=== PATIENT | male | born 1945 ===

== ENCOUNTER → 2022-02-05 | Outpatient (CLI) | payer OTHER | END | disposition home or self-care (01) | LOC: EDSEX → SHCH 14:42 → EDUNIT# 15:00 | PROVIDERS: ATTEND Internal Medicine | DX: I87.2 Venous insufficiency (chronic) (peripheral) (principal); I73.9 Peripheral vascular disease, unspecified; R60.9 Edema, unspecified | CPT/HCPCS: 93925; 93970 ==

== ENCOUNTER → 2022-02-07 | Outpatient (CLI) | payer OTHER | END | disposition home or self-care (01) | LOC: SHCH 13:45 | PROVIDERS: ATTEND Internal Medicine | DX: I08.8 Other rheumatic multiple valve diseases (principal); I10 Essential (primary) hypertension; R60.9 Edema, unspecified; E66.9 Obesity, unspecified | CPT/HCPCS: 93306 ==